=== PATIENT | male | born 1960 | race Caucasian/White ===

== ENCOUNTER 2018-09-12 13:21 | Emergency (ER) | payer OTHER, SELFPAY ==
[2018-09-12] VITALS (7 sets, daily range): BP systolic 100–137; BP diastolic 66–95; PULSE 65–82; RESP 15–23; TEMP 36.1; O2SAT 93–99; BMI 28.7
--- NOTE | 2018-09-12 13:40 | ED.DCSUM_ITS ---
- ER Visit Summary Date of Service: 09/12/18 Chief Complaint: Pill stuck in throat History of Present Illness: The patient is a 58 M who believes he has a pill stuck in his throat. He took an Advil earlier today for some back pain. He states that ever since he has been vomiting every 10 minutes. He cannot keep anything down. He states he did eat 2 eggs, 2 pieces of toast and some chocolate before he took the Advil. He has a history of Booker's esophagus and a Booker's ring. He has had his esophagus stretched by Dr. Phillips at the [facility] [place]. He states he cannot see him anymore because of a different kind of insurance. He denies any abdominal pain with this. This has happened before and has resolved with glucagon in the past. Physical Examination: Vital signs reviewed. HEENT exam unremarkable. The hypopharynx is unremarkable. Heart is regular rate and rhythm without murmurs. Lungs are clear to auscultation. Abdomen is soft and nontender. Extremities reveal no edema. Skin exam normal. Neurologic exam normal. Test Results: None performed Emergency Department Course and Treatment: The patient was given 1 mg of IV glucagon. After 1 hour he try to drink a glass of water and it came right back up. I spoke with Dr. San who was on-call for surgery. He was agreeable to come in to do endoscopy on this patient. Dr. San was able to remove the foreign body under endoscopic guidance. Patient will be discharged to follow-up with Dr. Sna in the office. He will likely need another dilation at a following date. Treatment Plan: [] Disposition: Discharge Impression: Esophageal This note was generated with Root4 dictation software. It may contain incorrect words, spelling, and punctuation that were not noted in review of the chart prior to signing ED Disposition - Plan for ED Patient: Referrals: [facility] Doctor,Out of [NON-STAFF] -
[2018-09-12] MEDS: Glucagon 1 MG/ML Syringe IV (13:57)
[2018-09-12] MEDS: Propofol 200 MG/20 ML Vial IV BOLUS (15:53)
--- NOTE | 2018-09-12 16:01 | ED.DEP ---
ED Disposition - Plan for ED Patient: Disposition: Home or Assisted Living Instructions: ED Foreign Body Esophageal Rslv Referrals: [facility] Doctor,Out of [NON-STAFF] - Troy San MD [STAFF PHYSICIAN] -
--- NOTE | 2018-09-12 16:12 | PCM.CONS.GEN ---
Problem List (1) Esophageal foreign body Status: Acute Qualifiers: Encounter type: initial encounter Qualified Code(s): T18.108A - Unspecified foreign body in esophagus causing other injury, initial encounter Reason for Consult Date of Consultation: 09/12/18 History of Present Illness: The patient is a 58 M who believes he has a pill stuck in his throat. He took an Advil earlier today for some back pain. He states that ever since he has been vomiting every 10 minutes. He cannot keep anything down. He states he did eat 2 eggs, 2 pieces of toast and some chocolate before he took the Advil. He has a history of Booker's esophagus and a Booker's ring. He has had his esophagus stretched by Dr. Phillips at the [facility]. He states he cannot see him anymore because of a different kind of insurance. He denies any abdominal pain with this. This has happened before and has resolved with glucagon in the past. In the emergency department he was given glucagon however this was on effective in relieving the esophageal foreign body obstruction. Past Medical History Allergies No Known Allergies Allergy (Verified 09/12/18 13:24) Home Medications: Ambulatory Orders Medication Instructions Recorded Cholecalciferol (VIT D3) [Vitamin 1 tablet PO DAILY 09/12/18 D3] Multivitamin [Multivitamins] 1 each PO DAILY 09/12/18 Surgical History: - - Last EGD was in 2015 and was done for stricture of the distal esophagus with balloon dilatation Lives: Spouse/ Significant Other Smoking Status: Never smoker - *Family History Maternal History Items: No pertinent history Review of Systems Cardiovascular: Denies: Chest Pain, Chest Pressure, Chest Tightness, Palpitations Respiratory: Denies: Cough, Hemoptysis, Shortness of breath at rest, Shortness of breath upon exertion, Wheezing Gastrointestinal: Reports: Vomiting. Denies: Abdominal Pain, Hematemesis Patient Problems: Active and Suspected Problems Esophageal foreign body (Acute) - Physical Exam General: Alert, Oriented x3 HEENT: Atraumatic, PERRLA, EOMI, Normocephalic Oral: Moist Mucosa Neck: Supple, No JVD Lungs: Clear to auscultation Cardiovascular: Regular rate, Regular Rhythm, No murmurs Abdomen: Bowel Sounds Present, Soft, Non Tender, Non-Distended Vital Signs Temp Pulse Resp BP Pulse Ox 97 F L 74 15 119/82 H 98 09/12/18 13:22 09/12/18 16:12 09/12/18 16:12 09/12/18 16:12 09/12/18 16:12 Oxygen Flow Rate (L/min) [3] 10 Oxygen Flow Rate (L/min) [2] 10 Oxygen Flow Rate (L/min) [1 ( 10 Initial Baseline)] Oxygen Flow Rate (L/min) 10 Oxygen Delivery Method [3] Nasal Cannula Oxygen Delivery Method [2] Nasal Cannula Oxygen Delivery Method [1 ( Room Air Initial Baseline)] Oxygen Delivery Method Room Air Weight: 200 lb Body Mass Index (BMI) 28.7 Assessment/Plan All Active Problems Esophageal foreign body (Acute) Plan is to perform an esophagogastroduodenoscopy with removal of foreign body in the distal esophagus. Risk benefits include bleeding possible esophageal perforation possible inability to complete the exam. I have explained to the patient that if I were to perforate his esophagus I would have to transfer him to a tertiary referral center and if I was unable to get the foreign body removed I would have to transfer him to a tertiary referral center he understood these instructions as did his and they are willing to proceed.
--- NOTE | 2018-09-12 16:25 | OP.ENDO_ITS ---
09/12/2018 Sriram Strong Re : Upper GI endoscopy procedure for Garrett Patel Ligia This procedure was performed on Wednesday, September 12, 2018. My impressions and recommendations are as follows: Impressions : - Food was found in the esophagus. Removal was successful. I was able to push it thru the ge junction - Benign-appearing esophageal stenosis. - Normal stomach. No specimens collected. - Normal duodenal bulb. No specimens collected. Recommendations : - Discharge patient to home. - Pureed diet for 1 week. - Continue present medications. - Repeat upper endoscopy in 1 month to evaluate the response to therapy. - Return to my office in 1 week. My findings are described in the full procedure note, which is enclosed. If I can be of further assistance, please feel free to contact me at Doctor phone number(s): , Fax: [phone], Work: . Sincerely, MD Troy Redman MD 09/12/2018 4:25:12 PM This report has been signed electronically.
== END 2018-09-12 16:50 | disposition home or self-care (01) ==
PROVIDERS: Surgery; Emergency Provider Emergency Medicine; Family Provider Family Medicine; PCP Family Medicine
PROC: 0DJ08ZZ Inspection of Upper Intestinal Tract, Via Natural or Artificial Opening Endoscopic (ICD-10-PCS; CPT 43235; principal; 2018-09-12 15:15)
DX: K22.2 Esophageal obstruction (principal); T18.108A Unspecified foreign body in esophagus causing other injury, initial encounter; T18.128A Food in esophagus causing other injury, initial encounter
CPT/HCPCS: 43247; 96374; 99283; J7030; A4216; J1610

== ENCOUNTER 2018-10-12 08:46 | Day surgery (SDC) | payer OTHER, SELFPAY ==
[2018-09-18 08:16] VITALS: BMI 28.7
--- NOTE | 2018-09-21 08:46 | HP_ITS ---
Intake Vital Signs 09/18/18 Body Mass Index (BMI) 28.7 09/18/18 Height 5 ft 9 in 09/18/18 Weight: 204 lb 6 oz 09/18/18 Body Mass Index (BMI) 30.2 09/18/18 Blood Pressure 122/74 H 09/18/18 Blood Pressure Location Rt brachial 09/18/18 Blood Pressure Position Sitting 09/18/18 Respiratory Rate 20 H 09/18/18 Pulse Rate 80 09/18/18 Pulse Ox 96 Intake Visit Reasons: ER FU 09/12/18 REMOVED FOREIGN BODY Allergies No Known Allergies Allergy (Verified 09/12/18 13:24) Medications Cholecalciferol (VIT D3) [Vitamin D3] 1 tab PO DAILY 09/12/18 [History Confirmed 09/12/18] Multivitamin [Multivitamins] 1 ea PO DAILY 09/12/18 [History Confirmed 09/12/18] PFS Medical History Esophageal stricture (Acute) History of retained foreign body fully removed (Acute) Surgical History History of colonoscopy (Acute) History of esophageal dilatation (Acute) History of esophagogastroduodenoscopy (EGD) (Acute) Family History Mother Breast cancer Sister Cancer pancreatic Social History Smoking Status: Never smoker HPI HPI HPI: WINSTON LYN, is a 58 M who presents to the office today for HPI HPI Surgical H&P: Yes HPI: WINSTON LYN, is a 58 M who presents to the office today for follow-up from an EGD and foreign body removal in the emergency department. I saw this patient in the emergency department on 09/12/2018. I performed an EGD and was able to push food back into his stomach. Patient states that he has a history of Booker's esophagus with a Booker's ring. His esophagus was last stretched approximately 3 years ago. His cleaner housekeeping is no longer on his insurance plan and he has not followed back up with a new cleaner housekeeping for a repeat EGD and dilatation prior to him coming into the emergency department. Patient is currently swallowing foods without difficulty. On his scope he was noted to have a benign intrinsic stenotic area in the distal esophagus with circumferential scarring my scope was easily able to pass through this. And I did not do any dilatation at that time secondary to irritation from the passage of food into the stomach. ROS General General: No weight change, appetite, fatigue, colon cancer, breast cancer or weakness HEENT HEENT: No difficulty swallowing, eye injury, eye surgery, swollen glands or hoarseness Endo Endocrine: No thyroid disease, diabetes mellitus, thyroid cancer, Hair loss, heat intolerance or cold intolerance Cardio Cardiovascular: No murmur, pacemaker, heart disease, atrial fibrillation, high blood pressure, heart attack, heart stent, palpitations, shortness of breat with exertion or chest pain Psych Psychiatric: No depression, anxiety or hearing voices Resp Respiratory: No shortness of breath, No sleep apnea, No cough, No COPD, No asthma, No emphysema, No wheezing Gastro Gastrointestinal: No abdominal pain, No nausea or vomiting, No diarrhea, No constipation, No blood in stool, No acid reflux, No hemorrhoids, No ulcers, No gallbladder problem, No black,tarry stools Neuro Neurologic: No weakness Exam Const General: no acute distress, well developed, well hydrated Orientation: oriented to person, oriented to place, oriented to time [facility] Head: normocephalic, atraumatic Ears: external ears normal Mouth: moist mucous membranes Eyes Sclera: sclerae normal Pupils: normal by confrontation Neck Neck: no lymphadenopathy noted Neck mass: No Thyroid: thyroid normal, symmetrical Chest Chest palpation & inspection: normal inspection of the chest Resp Effort & Inspection: normal respiratory effort Auscultation: clear to auscultation bilaterally Percussion: percussion normal Cardio Rate: regular rate Rhythm: regular rhythm Heart Sounds: no murmurs GI Palpation: soft, no hepatosplenomegaly, no masses, nontender Rectal Exam: other Other: Rectal exam deferred. Extrem General: normal to inspection, no clubbing, cyanosis or edema Assessment & Plan Problems 1. Esophageal stricture K22.2 Plan I have discussed the above with the patient. I have offered the patient esophagogastroduodenoscopy with balloon dilatation for evaluation. I have explained the risks/benefits of the procedure and described the procedure. I have discussed the risks with the patient, including but not limited to: infection, bleeding, perforation of the GI tract requiring emergency surgery, inability to complete the procedure, injury to any internal organs, complications of anesthesia, etc. - the patient understands and agrees to proceed. I have answered all the patient's questions to the patient's satisfaction and the patient has no further questions. The patient has been given instructions for the colon cleansing preparation. Orders Orders: EGD 09/18/18 Coding Level of Care Code Off vis,est,level 3 Diagnoses Esophageal stricture K22.2 I have re-examined the patient. There are no clinical changes since date of exam.
[2018-10-12] VITALS (7 sets, daily range): BP systolic 87–120; BP diastolic 55–93; PULSE 65–77; RESP 16–18; TEMP 36.3–37; O2SAT 92–98; BMI 29.9
--- NOTE | 2018-10-12 09:52 | OP.ENDO_ITS ---
10/12/2018 Sriram Strong Re : Upper GI endoscopy procedure for Garrett Patel Ligia This procedure was performed on Friday, October 12, 2018. My impressions and recommendations are as follows: Impressions : - Benign-appearing esophageal stenosis. - Normal stomach. No specimens collected. - Normal duodenal bulb. No specimens collected. Recommendations : - Discharge patient to home. - Resume previous diet. - Continue present medications. - Await pathology results. - Repeat upper endoscopy in 6 months to assess disease activity. - Return to my office in 6 months. My findings are described in the full procedure note, which is enclosed. If I can be of further assistance, please feel free to contact me at Doctor phone number(s): , Fax: [phone], Work: . Sincerely, MD Troy Redman MD 10/12/2018 9:51:38 AM This report has been signed electronically.
== END 2018-10-12 10:38 | disposition home or self-care (01) ==
LOC: EN 08:49 → AC 08:49
PROVIDERS: Family Provider Family Medicine; PCP Family Medicine; Referring Provider Family Medicine; Visit Provider Surgery
PROC: 0DJ08ZZ Inspection of Upper Intestinal Tract, Via Natural or Artificial Opening Endoscopic (ICD-10-PCS; CPT 43235; principal; 2018-10-12 09:40)
DX: K22.2 Esophageal obstruction (principal); T18.108A Unspecified foreign body in esophagus causing other injury, initial encounter; R93.3 Abnormal findings on diagnostic imaging of other parts of digestive tract
CPT/HCPCS: 43235; J7120; J1610; J2405

== ENCOUNTER 2020-09-29 09:00 | Day surgery (SDC) | payer OTHER, SELFPAY ==
[2020-09-25 08:26] VITALS: BMI 29.9
[2020-09-29] VITALS (7 sets, daily range): BP systolic 117–128; BP diastolic 71–88; PULSE 54–72; RESP 16; TEMP 36.4–37; O2SAT 96–100; BMI 28.8
--- NOTE | 2020-09-29 07:00 | HP_ITS ---
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 Is patient in pain?: No Allergies No Known Allergies Allergy (Verified 09/25/20 08:22) Medications atorvastatin 20 mg tablet 20 mg PO DAILY tab 09/25/20 [History Confirmed 09/25/20] omeprazole 20 mg tablet,delayed release 20 mg PO DAILY #60 tab 09/25/20 [Rx Confirmed 09/25/20] PFSH Medical History (Updated 09/25/20 @ 08:21 by Cristine Khan) Barretts esophagus Dysphagia Esophageal stricture History of retained foreign body fully removed Surgical History History of colonoscopy History of esophageal dilatation History of esophagogastroduodenoscopy (EGD) Family History Mother Breast cancer Sister Cancer pancreatic Social History (Updated 09/25/20 @ 08:21 by Cristine Khan) Smoking Status: Never smoker second hand exposure: No substance use type: does not use caffeine: Yes what type of physical activity do you participate in: walking and weight training frequency: 3-4 times per week HPI HPI HPI: WINSTON LYN, is a 60 M who presents to the office today for HPI HPI Surgical H&P: Yes HPI: WINSTON LYN, is a 60 M who presents to the office today for dysphagia. The patient reports over the last 20 years he has usually been dilated every 3 to 4 years. He says that he tried omeprazole in the past with no help. He says he is taking apple cider vinegar. The patient reports that he is having difficulty swallowing with food sticking in his chest and sometimes he has regurgitation. ROS General General: No weight change, appetite, fatigue, colon cancer, breast cancer or weakness HEENT HEENT: Yes difficulty swallowing; No eye injury, eye surgery, swollen glands or hoarseness Endo Endocrine: No thyroid disease, diabetes mellitus, thyroid cancer, Hair loss, heat intolerance or cold intolerance Skin Skin: No rash or changing moles Musc Musculoskeletal: No back problems, arthritis, rheumatoid arthritis, gout or joint pain Cardio Cardiovascular: No pacemaker, heart disease, atrial fibrillation, high blood pressure, heart attack, heart stent, palpitations, shortness of breat with exertion or chest pain Psych Psychiatric: No depression, anxiety or hearing voices Resp Respiratory: No shortness of breath, No sleep apnea, No cough, No COPD, No asthma, No emphysema and No wheezing Gastro Gastrointestinal: No abdominal pain, No nausea or vomiting, No diarrhea, No constipation, No blood in stool, No acid reflux, No hemorrhoids, No ulcers, No gallbladder problem and No black,tarry stools Additional Details: History of Booker's esophagus [place] Hematologic: No blood thinners, No blood disorders, No bleeding, No anemia and No blood clots Neuro Neurologic: No weakness Exam Const General: cooperative Orientation: alert and oriented x3 Resp Effort & Inspection: normal respiratory effort Auscultation: clear to auscultation bilaterally Cardio Rate: regular rate Rhythm: regular rhythm GI Inspection: non-distended Palpation: soft and nontender Assessment and Plan Assessment and Plan (1) Dysphagia: Status: Acute (2) Barretts esophagus: Status: Acute Plan - Dr. Willie Guy MD: The patient has a history of Booker's esophagus and his last EGD was in 2019. At that time he did not have dilation. The patient reports he is having increasing dysphagia. The patient is also clearing his throat a lot. I recommend EGD with possible dilation. I explained endoscopy in detail to the patient. I explained the risks including but not limited to stroke or heart attack with anesthesia, perforation of the GI tract, bleeding, infection. I explained the increased risk of perforation and bleeding due to dilation. I explained that any of these could necessitate further emergency surgery. The patient understands and all questions were answered sufficiently. The patient wishes to proceed with procedure. I have also refilled the patient's omeprazole. Willie Guy MD Pager: [facility] [address] [place] [address], [address] [place] [address] Office: Plan Details Other Medications: New: omeprazole 20 mg PO DAILY 60 tabs 1RF Coding Level of Care Code Off vis,est,level 3 Diagnoses Dysphagia R13.10 Barretts esophagus K22.70
--- NOTE | 2020-09-29 09:24 | PCM.HP.BLA ---
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 Is patient in pain?: No Allergies No Known Allergies Allergy (Verified 09/25/20 08:22) Medications atorvastatin 20 mg tablet 20 mg PO DAILY tab 09/25/20 [History Confirmed 09/25/20] omeprazole 20 mg tablet,delayed release 20 mg PO DAILY #60 tab 09/25/20 [Rx Confirmed 09/25/20] PFSH Medical History (Updated 09/25/20 @ 08:21 by Cristine Khan) Barretts esophagus Dysphagia Esophageal stricture History of retained foreign body fully removed Surgical History History of colonoscopy History of esophageal dilatation History of esophagogastroduodenoscopy (EGD) Family History Mother Breast cancer Sister Cancer pancreatic Social History (Updated 09/25/20 @ 08:21 by Cristine Khan) Smoking Status: Never smoker second hand exposure: No substance use type: does not use caffeine: Yes what type of physical activity do you participate in: walking and weight training frequency: 3-4 times per week HPI HPI HPI: WINSTON LYN, is a 60 M who presents to the office today for HPI HPI Surgical H&P: Yes HPI: WINSTON LYN, is a 60 M who presents to the office today for dysphagia. The patient reports over the last 20 years he has usually been dilated every 3 to 4 years. He says that he tried omeprazole in the past with no help. He says he is taking apple cider vinegar. The patient reports that he is having difficulty swallowing with food sticking in his chest and sometimes he has regurgitation. ROS General General: No weight change, appetite, fatigue, colon cancer, breast cancer or weakness HEENT HEENT: Yes difficulty swallowing; No eye injury, eye surgery, swollen glands or hoarseness Endo Endocrine: No thyroid disease, diabetes mellitus, thyroid cancer, Hair loss, heat intolerance or cold intolerance Skin Skin: No rash or changing moles Musc Musculoskeletal: No back problems, arthritis, rheumatoid arthritis, gout or joint pain Cardio Cardiovascular: No pacemaker, heart disease, atrial fibrillation, high blood pressure, heart attack, heart stent, palpitations, shortness of breat with exertion or chest pain Psych Psychiatric: No depression, anxiety or hearing voices Resp Respiratory: No shortness of breath, No sleep apnea, No cough, No COPD, No asthma, No emphysema and No wheezing Gastro Gastrointestinal: No abdominal pain, No nausea or vomiting, No diarrhea, No constipation, No blood in stool, No acid reflux, No hemorrhoids, No ulcers, No gallbladder problem and No black,tarry stools Additional Details: History of Booker's esophagus [place] Hematologic: No blood thinners, No blood disorders, No bleeding, No anemia and No blood clots Neuro Neurologic: No weakness Exam Const General: cooperative Orientation: alert and oriented x3 Resp Effort & Inspection: normal respiratory effort Auscultation: clear to auscultation bilaterally Cardio Rate: regular rate Rhythm: regular rhythm GI Inspection: non-distended Palpation: soft and nontender Assessment and Plan Assessment and Plan (1) Dysphagia: Status: Acute (2) Barretts esophagus: Status: Acute Plan - Dr. Willie Guy MD: The patient has a history of Booker's esophagus and his last EGD was in 2019. At that time he did not have dilation. The patient reports he is having increasing dysphagia. The patient is also clearing his throat a lot. I recommend EGD with possible dilation. I explained endoscopy in detail to the patient. I explained the risks including but not limited to stroke or heart attack with anesthesia, perforation of the GI tract, bleeding, infection. I explained the increased risk of perforation and bleeding due to dilation. I explained that any of these could necessitate further emergency surgery. The patient understands and all questions were answered sufficiently. The patient wishes to proceed with procedure. I have also refilled the patient's omeprazole. Willie Guy MD Pager: [facility] [address] [place] [address], [address] [place] [address] Office: I have re-examined the patient. There are no clinical changes since date of exam. Assessment & Plan Assessment/Plan (1) Dysphagia: (2) Barretts esophagus:
[2020-09-29] MEDS: Lactated Ringers 1,000 ML 100 ML IV (09:34)
--- NOTE | 2020-09-29 09:55 | OP.CCLET_ITS ---
09/29/2020 Sriram Strong Re : Upper GI endoscopy procedure for Garrett Patel Jorge Strong This procedure was performed on Tuesday, September 29, 2020. My impressions and recommendations are as follows: Impressions : - Benign-appearing esophageal stenosis. - Normal stomach. - Normal examined duodenum. - No specimens collected. Recommendations : - Discharge patient to home. - Mechanical soft diet for 2 days. - Continue present medications. - Repeat upper endoscopy in 1 month for retreatment. - Return to my office in 2 weeks to schedule scope. Call for appt [phone] My findings are described in the full procedure note, which is enclosed. If I can be of further assistance, please feel free to contact me at Doctor phone number(s): , Work: . Sincerely, Willie Guy MD 09/29/2020 9:54:42 AM This report has been signed electronically.
--- NOTE | 2020-09-29 09:55 | OP.EGD_ITS ---
Patient Name: Garrett Patel Procedure Date: 09/29/2020 9:28 AM Date of : 1960 Age: 60 Procedure: Upper GI endoscopy Indications: Dysphagia Providers: Willie Guy MD Referring MD: Sriram Strong Medicines: Monitored Anesthesia Care Patient Profile: This is a 60 year old male. Refer to note in patient chart for documentation of history and physical. Complications: No immediate complications. Estimated blood loss: Minimal. Procedure: Pre-Anesthesia Assessment: - Prior to the procedure, a History and Physical was performed, and patient medications and allergies were reviewed. The patient's tolerance of previous anesthesia was also reviewed. The risks and benefits of the procedure and the sedation options and risks were discussed with the patient. All questions were answered, and informed consent was obtained. Prior Anticoagulants: The patient has taken no previous anticoagulant or antiplatelet agents. After reviewing the risks and benefits, the patient was deemed in satisfactory condition to undergo the procedure. After obtaining informed consent, the endoscope was passed under direct vision. Throughout the procedure, the patient's blood pressure, pulse, and oxygen saturations were monitored continuously. The Endoscope was introduced through the mouth, and advanced to the second part of duodenum. The upper GI endoscopy was accomplished without difficulty. The patient tolerated the procedure well. Scope In: 9:43:35 AM Scope Out: 9:47:25 AM Total Procedure Duration Time 0 hours 3 minutes 50 seconds Findings: One benign-appearing, intrinsic stenosis was found at the gastroesophageal junction. This stenosis was severe (stenosis; an endoscope cannot pass) and. The stenosis was traversed. The scope was able to dilate and break the Schatzki ring. No further balloon dilation was performed due to risk of perforation. The stomach was normal. The examined duodenum was normal. Impression: - Benign-appearing esophageal stenosis. - Normal stomach. - Normal examined duodenum. - No specimens collected. Recommendation: - Discharge patient to home. - Mechanical soft diet for 2 days. - Continue present medications. - Repeat upper endoscopy in 1 month for retreatment. - Return to my office in 2 weeks to schedule scope. Call for appt [phone] Procedure Code(s): --- Professional --- 38220, Esophagogastroduodenoscopy, flexible, transoral; diagnostic, including collection of specimen(s) by brushing or washing, when performed (separate procedure) Diagnosis Code(s): --- Professional --- K22.2, Esophageal obstruction R13.10, Dysphagia, unspecified CPT copyright 2017 [employer]. All rights reserved. The codes documented in this report are preliminary and upon java consultant review may be revised to meet current compliance requirements. Willie Guy MD 09/29/2020 9:54:42 AM This report has been signed electronically. Number of Addenda: 0 Note Initiated On: 09/29/2020 9:28 AM
== END 2020-09-29 10:49 ==
LOC: EN 09:04 → AC 09:05
PROVIDERS: PCP Family Medicine; Referring Provider Family Medicine; Visit Provider Surgery
PROC: 0DJ08ZZ Inspection of Upper Intestinal Tract, Via Natural or Artificial Opening Endoscopic (ICD-10-PCS; CPT 43235; principal; 2020-09-29 09:55)
DX: K22.2 Esophageal obstruction (principal); K22.70 Barrett's esophagus without dysplasia; K21.9 Gastro-esophageal reflux disease without esophagitis; H91.93 Unspecified hearing loss, bilateral; Z87.442 Personal history of urinary calculi
CPT/HCPCS: 43235; J7120; J2405

== ENCOUNTER 2021-01-30 07:24 | Day surgery (SDC) | payer OTHER, SELFPAY ==
[2021-01-30] MEDS: Lactated Ringers 1,000 ML 100 ML IV (07:50)
[2021-01-30 08:00] VITALS: BP 126/85; PULSE 58; RESP 16; TEMP 36.5; O2SAT 99; BMI 30.1
--- NOTE | 2021-01-30 08:29 | HP.PCM_ITS ---
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 Accompanied by: Self Is patient in pain?: No Allergies No Known Allergies Allergy (Verified 10/20/20 13:32) Medications atorvastatin 20 mg tablet 20 mg PO DAILY tab 09/25/20 [History Confirmed 10/20/20] omeprazole 20 mg tablet,delayed release 20 mg PO DAILY #60 tab 09/25/20 [Rx Confirmed 10/20/20] apple cider vinegar 1 tsp PO/SL DAILY 09/26/20 [History Confirmed 10/20/20] cholecalciferol (vitamin D3) [Vitamin D3] 50 mcg PO DAILY 09/26/20 [History Confirmed 10/20/20] multivitamin 1 tab PO DAILY 09/26/20 [History Confirmed 10/20/20] [facility] Medical History Barretts esophagus Dysphagia Esophageal stricture GERD (gastroesophageal reflux disease) Hearing loss, left Hearing loss, right History of retained foreign body fully removed Kidney stones Surgical History History of colonoscopy History of esophageal dilatation History of esophagogastroduodenoscopy (EGD) Family History Mother Breast cancer Sister Cancer pancreatic Social History Smoking Status: Never smoker second hand exposure: No substance use type: does not use caffeine: Yes what type of physical activity do you participate in: walking and weight training frequency: 3-4 times per week HPI HPI HPI: WINSTON LYN, is a 60 M who presents to the office today for follow-up after EGD with dilation. The patient had EGD approximately 3 weeks ago and I was able to dilate the stenosis using the scope but I was unable to dilate any further. The patient reports no dysphagia at this time and he is tolerating a regular diet. He is still taking his omeprazole. ROS General General: No weight change or fatigue HEENT HEENT: No difficulty swallowing Endo Endocrine: No thyroid disease Musc Musculoskeletal: No back problems or arthritis Cardio Cardiovascular: No pacemaker, heart disease, atrial fibrillation, high blood pressure, heart attack, heart stent, palpitations or chest pain Psych Psychiatric: No depression or anxiety Resp Respiratory: No shortness of breath, No cough, No COPD, No asthma and No emphysema Gastro Gastrointestinal: No abdominal pain, No nausea or vomiting, No diarrhea, No constipation, No blood in stool, No acid reflux, No hemorrhoids, No ulcers, No gallbladder problem and No black,tarry stools [place] Hematologic: No blood thinners Exam Const General: cooperative Orientation: alert and oriented x3 HENMT Head: normal to inspection Neck Neck: normal visual inspection and full ROM Chest Chest palpation & inspection: normal inspection of the chest Resp Effort & Inspection: normal respiratory effort Auscultation: clear to auscultation bilaterally Cardio Rate: regular rate Rhythm: regular rhythm GI Inspection: non-distended Palpation: soft and nontender Skin General: no rashes or lesions noted Neuro General: patient alert and patient oriented x3 Extrem General: full ROM Psych Appearance: grossly normal Mental Status: mental status grossly normal Assessment and Plan Assessment and Plan (1) Dysphagia: Status: Acute Orders: Orders: EGD Today Plan - Dr. Willie Guy MD: The patient has stenosis of the distal esophagus. I was able to dilate this using the EGD scope but this is only 1 cm in diameter. I recommend a serial dilation to further dilate this area. The patient has busy until December he would like this EGD done in December to dilate the esophagus further. I explained endoscopy in detail to the patient. I explained the risks including but not limited to stroke or heart attack with anesthesia, perforation of the GI tract, bleeding, infection. I explained that any of these could necessitate further emergency surgery. The patient understands and all questions were answered sufficiently. The patient wishes to proceed with procedure. Willie Guy MD Pager: [facility] [address] [place] [address], [address] [place] [phone] Office: I have re-examined the patient. There are no clinical changes since date of exam.
[2021-01-30 08:57] VITALS: BP 124/87; BP 126/85; PULSE 72; RESP 16; TEMP 36.4; O2SAT 97
--- NOTE | 2021-01-30 08:58 | OP.EGD_ITS ---
Patient Name: Garrett Patel Procedure Date: 01/30/2021 8:37 AM Date of : 1960 Age: 61 Procedure: Upper GI endoscopy Indications: Follow-up of esophageal stenosis Providers: Willie Guy MD Medicines: Monitored Anesthesia Care Patient Profile: This is a 61 year old male. Refer to note in patient chart for documentation of history and physical. Complications: No immediate complications. Estimated blood loss: Minimal. Procedure: Pre-Anesthesia Assessment: - Prior to the procedure, a History and Physical was performed, and patient medications and allergies were reviewed. The patient's tolerance of previous anesthesia was also reviewed. The risks and benefits of the procedure and the sedation options and risks were discussed with the patient. All questions were answered, and informed consent was obtained. Prior Anticoagulants: The patient has taken no previous anticoagulant or antiplatelet agents. After reviewing the risks and benefits, the patient was deemed in satisfactory condition to undergo the procedure. After obtaining informed consent, the endoscope was passed under direct vision. Throughout the procedure, the patient's blood pressure, pulse, and oxygen saturations were monitored continuously. The Endoscope was introduced through the mouth, and advanced to the second part of duodenum. The upper GI endoscopy was accomplished without difficulty. The patient tolerated the procedure well. Scope In: 8:47:25 AM Scope Out: 8:50:06 AM Total Procedure Duration Time 0 hours 2 minutes 41 seconds Findings: One benign-appearing, intrinsic stenosis was found. This stenosis was severe (stenosis; an endoscope cannot pass) and. The stenosis was traversed. Passing the scope through the stenosis caused heme and dilation. No further dilation performed due to manual dilation from scope breaking the ring. The stomach was normal. The examined duodenum was normal. Impression: - Benign-appearing esophageal stenosis. - Normal stomach. - Normal examined duodenum. - No specimens collected. Recommendation: - Discharge patient to home. - Soft diet for 2 days. - Continue present medications. Procedure Code(s): --- Professional --- 25701, Esophagogastroduodenoscopy, flexible, transoral; diagnostic, including collection of specimen(s) by brushing or washing, when performed (separate procedure) Diagnosis Code(s): --- Professional --- K22.2, Esophageal obstruction CPT copyright 2017 [employer]. All rights reserved. The codes documented in this report are preliminary and upon integration solution architect review may be revised to meet current compliance requirements. Willie Guy MD 01/30/2021 8:57:26 AM This report has been signed electronically. Number of Addenda: 0 Note Initiated On: 01/30/2021 8:37 AM
--- NOTE | 2021-01-30 08:58 | OP.CCLET_ITS ---
01/30/2021 Sriram Strong Re : Upper GI endoscopy procedure for Garrett Patel Dear Ligia This procedure was performed on Saturday, January 30, 2021. My impressions and recommendations are as follows: Impressions : - Benign-appearing esophageal stenosis. - Normal stomach. - Normal examined duodenum. - No specimens collected. Recommendations : - Discharge patient to home. - Soft diet for 2 days. - Continue present medications. My findings are described in the full procedure note, which is enclosed. If I can be of further assistance, please feel free to contact me at Doctor phone number(s): , Work: . Sincerely, Willie Guy MD 01/30/2021 8:57:26 AM This report has been signed electronically.
[2021-01-30 09:00] VITALS: BP 117/81; BP 126/85; PULSE 78; RESP 16; O2SAT 97
[2021-01-30 09:05] VITALS: BP 122/83; BP 126/85; PULSE 68; RESP 16; O2SAT 96
[2021-01-30 09:11] VITALS: BP 120/74; BP 126/85; PULSE 62; RESP 16; TEMP 36.1; O2SAT 100
[2021-01-30 09:27] VITALS: BP 126/85
== END 2021-01-30 09:35 ==
LOC: EN 07:27 → AC 07:31
PROVIDERS: PCP Family Medicine; Referring Provider Family Medicine; Visit Provider Surgery
PROC: 0DJ08ZZ Inspection of Upper Intestinal Tract, Via Natural or Artificial Opening Endoscopic (ICD-10-PCS; CPT 43235; principal; 2021-01-30 08:25)
DX: K22.2 Esophageal obstruction (principal); K21.9 Gastro-esophageal reflux disease without esophagitis; Z87.442 Personal history of urinary calculi
CPT/HCPCS: 43235; J7120; J2405